=== PATIENT | male | born 1960 | race Caucasian/White ===

== ENCOUNTER → 2017-10-19 | Outpatient (CLI) | payer OTHER ==
[~2017-10-19] MED LIST: ALBU90OI61 INH; AMIT25 PO; AMIT50 PO; AMIT75 PO; AMOCLA875 PO; ASPI325 PO; ASPI81CH PO; ASPI81EC PO; BISA5EC PO; CEPH500 PO; CIPR500 PO; CLOP75 PO; CRUTCH4 XX; CYCL10 PO; DOXA4 PO; FURO40 PO; GABA300 PO; HYDACE10B PO; HYDACE5; HYDACE5 PO; IBUP800 PO; LISI20 PO; LISI5 PO; MAGCIT300 PO; MARAJUANA; METF500 PO; METO100 PO; METO50 PO; MULVITMIND PO; NITR.4SL SL; NITR.6SL SL; Nitrostat0.4 MG SL; OXYACE5T PO; PANT40 PO; PRAV10 PO; PRAV20 PO; Percocet 10-321 EACH PO; Percocet 5-3251 EACH PO; RANI150 PO; TAMS.4ER PO; TRAM50 PO; UNK BP MED; Ultram50 MG PO; Zofran Odt4 MG PO; [UNRECOGNIZED DRUG - OTHER] PO; [UNRECOGNIZED DRUG - REMARK]
[2017-10-19 19:42] LABS: Alanine Aminotransfer (ALT/SGP 39 U/L (12-78); Albumin, Blood 3.4 g/dL (3.4-5.0); Albumin/Globulin Ratio 0.7 (0.8-1.8); Alk Phos 69 U/L (50-136); Anion Gap 4 mmol/L (6-16); Aspartate Aminotrans (AST/SGOT 21 U/L (12-37); Bilirubin, Total 0.4 mg/dL (0.1-1.0); Blood Urea Nitrogen 17 mg/dL (8-24); Bun/Creatinine Ratio 16.5 (12.0-20.0); CO2, Blood 29 mmol/L (21-32); Calcium, Blood 9.2 mg/dL (8.5-10.1); Chloride, Blood 106 mmol/L (98-108); Cholesterol 156 mg/dL (50-200); Creatinine, Blood 1.03 mg/dL (0.60-1.20); Globulin, Blood 4.8 g/dL (2.2-4.0); Glomerular Filtration Rate >60 (60-); Glucose, Blood 121 mg/dL (70-99); HDL Cholesterol 52 mg/dL (>39); LDL/HDL RATIO 1.4; Low Density Lipoprotein Chol 72 mg/dL (0-110); Potassium, Blood 4.2 mmol/L (3.5-5.5); Sodium, Blood 139 mmol/L (136-145); Total Protein, Blood 8.2 g/dL (6.4-8.2); Triglycerides 160 mg/dL (30-160); Very Low Density Lipoprot Chol 32 mg/dL (6-32)
== END ==
LOC: LAB SHORT 17:20 → LAB 17:20
PROVIDERS: Nurse Practitioner Family
DX: E11.9 Type 2 diabetes mellitus without complications (principal)
CPT/HCPCS: 80053; 80061; 83036